=== PATIENT | male | born 1945 | race American Indian/Alaskan Native ===

== ENCOUNTER 2016-10-12 14:01 | Emergency (ER) | payer OTHER ==
--- NOTE | 2016-10-12 13:23 | EDM.PDOC ---
[id number] COMING BY PRIVATE CAR Time Seen by Provider: 10/12/16 14:10 Source of Information: Reports: Patient ([id number]), Old records, Provider (Dr. Castillo), RN, RN notes reviewed History Limitations: Reports: No limitations - History of Present Illness INITIAL COMMENTS - FREE TEXT/NARRATIVE: Sent by POV from [facility] today for evaluation of acute urinary retention with urethritis and penile skin changes. Pt was seen in clinic today for follow up after having penile skin lesions and a UA a few days ago. Dr. Castillo called the ER to inform me that he has consulted the [facility] urologist Dr. Sharif via Dr. Sharif's nurse and has been advised to obtain a CT Abd/Pelvis with contrast using urinary outflow protocol, and to place a kaplan catheter, then call Dr. Sharif to form a disposition plan and f/u or transfer of the pt as needed. Pt has labs and UA at [facility] today, but the clinic did not have kaplan catheters or CT availability. Timing/Duration: Reports: Constant, Getting worse Location: Reports: urethral, suprapubic, other (penis) Quality: Reports: ache, burning, cramping Severity: severe Worsens with: Reports: urinating Context: Denies: recent surgery, recent trauma, lifting, activity/exercise Associated Symptoms: Reports: no other symptoms - Related Data Allergies/ADRs: Allergies Allergy/AdvReac Type Severity Reaction Status Date / Time No Known Allergies Allergy Verified 10/12/16 14:16 Home Meds: Home Meds . [No Known Home Meds] 01/29/16 [History] Past Medical History - Past Health History Medical/Surgical History: Denies Medical/Surgical History - Past Surgical History Other HEENT Surgeries/Procedures: Expanded the throat Social & Family History - Family History Family Medical History: Noncontributory - Tobacco Use Smoking Status *Q: Never Smoker Second Hand Smoke Exposure: No - Caffeine Use Caffeine Use: Reports: Coffee, Soda - Recreational Drug Use Recreational Drug Use: No - Living Situation & Occupation Living situation: Reports: , with spouse Occupation: retired ED ROS GENERAL - Review of Systems Review Of Systems: ROS reveals no pertinent complaints other than HPI. ED EXAM, RENAL/ - Physical Exam Exam: See Below Exam Limited By: No limitations General Appearance: alert, WD/WN, no apparent distress Head: atraumatic, normocephalic Neck: normal inspection Respiratory/Chest: no respiratory distress, lungs clear, normal breath sounds, no accessory muscle use, chest non-tender Cardiovascular: regular rate, rhythm GI/Abdominal: normal bowel sounds, soft, no organomegaly, tender (at suprapubic region with distended urinary bladder to level just inferior to umbilicus). No : guarding, rigid, rebound (Male) Exam: Other (penile varicosity w/mild edema, appears to likely be from persistently distended bladder) Back Exam: normal inspection. No: CVA tenderness (L), CVA tenderness (R) Extremities: normal inspection, no pedal edema Neurological: alert, oriented, normal cognition, normal gait, no motor/sensory deficits Psychiatric: normal affect, normal mood Course - Vital Signs Last Recorded V/S: Last Vital Signs Temp 36.3 C 10/12/16 14:04 Pulse 71 10/12/16 14:04 Resp 20 10/12/16 14:04 BP 175/84 H 10/12/16 14:04 Pulse Ox 98 10/12/16 14:04 - Orders/Labs/Meds Meds: Medications Discontinued Medications Generic Name Dose Route Start Last Admin Trade Name Freq PRN Reason Stop Dose Admin Barium Sulfate 450 ml 10/12/16 13:13 Readi-Cat PO 10/12/16 13:14 ONETIME ONE Barium Sulfate 450 ml 10/12/16 15:39 Readi-Cat 2 PO 10/12/16 15:40 ONETIME ONE Iopamidol 100 ml 10/12/16 13:13 10/12/16 15:38 Isovue-300 (61%) IVPUSH 10/12/16 13:14 100 ml ONETIME ONE Administration Tamsulosin HCl 0.4 mg 10/12/16 17:34 Flomax PO 10/12/16 17:35 ONETIME ONE - Radiology Interpretation Free Text/Narrative:: CT scan abdomen and pelvis: Large postvoid residual volume urinary bladder (no sign of upper tract obstruction). Abnormal prostate gland. Huge hiatal hernia. See rad report for further comments. - Re-Assessments/Exams Free Text/Narrative Re-Assessment/Exam: 10/12/16 17:[address] Sharif, urologist television journalist, at [facility]. He advised discharge the patient to home with Kaplan catheter and Flomax 0.4mg daily. Advised to have the patient follow up in clinic or one of his associates sometime between Sunday or Sunday next week. Patient will follow up tomorrow with Dr. Portillo at [facility]. Patient has been instructed in Kaplan catheter by RN prior to discharge. I explained the exam findings, results of all diagnostic tests, working diagnosis, and any potential or additionally considered diagnoses, treatment/ disposition plan, self/home care instructions, rational for the diagnosis/ treatment plan/disposition plan, anticipated course of illness, and follow up instructions to the pt and/or pts family or guardian. The pt and/or pts family or guardian acknowledges understanding of the above explanation(s), and of the signs and symptoms which should prompt the return of the pt to the ER should those or any other concerning symptoms develop. Departure - Departure Time of Disposition: 17:34 Disposition: Home, Self-Care 01 Condition: fair Clinical Impression: Acute urinary retention Instructions: Kaplan Catheter Care, Adult, Acute Urinary Retention, Male, Easy- to-Read Forms: ED Department Discharge Additional Instructions: Flomax 0.4mg. Follow up in clinic tomorrow with Dr. Portillo for recheck. Follow up in urology clinic at [facility] between October 16 to for recheck. Return to ER if worse at any time or any new symptoms develop.
[~2016-10-12 14:01] MED LIST: Barium Sulfate w/v 1.3% Oral Susp 450 ML Bottle PO ONE; Iopamidol 612 MG/ML 100 ML Bottle IVPUSH ONE
[2016-10-12 14:07] VITALS: BP 175/84
[2016-10-12] MEDS ORDERED: Barium Sulfate w/v 2.1% Oral Susp 450 ML Bottle PO ONE (15:39)
--- NOTE | 2016-10-12 16:15 | CT ---
Clinical history: 71-year-old 185 pound male with clinical "urethritis", penile swelling and severe urinary retention. TECHNIQUE: Volume acquisition of data from the abdomen and pelvis kidneys/ureters/bladder) obtained during/after the intravenous infusion 100 cc nonionic Isovue contrast was patient was lying supine o n the Siemens multi slice CT scanner [place], [place]. All data archi noe in the PACS system for storage, reformatting and study. Interpretation: Abnormal. 1. Midline urinary bladder distended with the dome approaching a plane through the umbilicus (above the iliac crest). Prostate gland enlarged with dense central calcification (irregular margin ). 2. Normal reniform size axis and configuration bilaterally (isolated tiny punctate calyceal calcific ation lower pole right and midpole left kidneys i.e. nephrolithiasis). No sign of obstructive uropathy i.e. no pyelocaliectasis or ureterectasis. No cystic or solid renal cortical mass lesion. 3. No other pelvic or abdominal mass lesion and no signs of retroperitoneal lymphadenopathy. 4. Huge hiatus hernia incarcerated in the lower middle mediastinum. 5. Gallbladder, liver, spleen, pancreas, and adrenal glands unremarkable. Note: Pronounced, large "post void" urinary bladder residual volume. 6. Atheromatous calcifications normal caliber aortoiliac vessels no sign of aneurysm. CONCLUSION: Large postvoid residual volume urinary bladder (no sign of upper tract obstruction). Abn ormal prostate gland. Huge hiatus hernia.
[2016-10-12] MEDS ORDERED: Tamsulosin 0.4 MG Cap.ER PO ONE (17:34)
== END 2016-10-12 18:01 | disposition home or self-care (01) ==
LOC: DL.ED 14:01
DX: R33.9 Retention of urine, unspecified (principal)
CPT/HCPCS: 74178; 99283; Q9967; 51702

== ENCOUNTER 2016-11-17 10:43 | Emergency (ER) | payer OTHER ==
[2016-11-17] MEDS ORDERED: Polyethylene Glycol 3350 Powder 17 GM Packet PO ONE (11:05)
--- NOTE | 2016-11-17 11:11 | EDM.PDOC ---
{null, ED HPI GENERAL MEDICAL PROBLEM - General Chief Complaint: Gastrointestinal Problem Stated Complaint: CONSTIPATION Time Seen by Provider: 11/17/16 11:07 Source of Information: Reports: Patient History Limitations: Reports: No Limitations - History of Present Illness INITIAL COMMENTS - FREE TEXT/NARRATIVE: patient comes to the department today with complaints of constipation. He has not had a bowel movement in the past 2 weeks. Typically has a bowel movement every 2-3 days. He has tried [id number] docusate as well as fleets enemas at home without resolution. His abdomen is distended he has lots of abdominal cramping. He denies any nausea or vomiting. He denies any history of surgery to his abdomen. Up until 6 months ago he did not struggle with constipation and has been seeing his regular doctor for this and has a colonoscopy coming up in the near future. He denies any fever chills. Denies any hematuria dysuria or urinary frequency. Prior to this episode of constipation he denies any black or tarry stools. Abdomen Pain Score (Numeric/FACES): 8 - Related Data Allergies Allergy/AdvReac Type Severity Reaction Status Date / Time No Known Allergies Allergy Verified 10/12/16 14:16 Home Meds: Home Meds Lisinopril 10 mg PO DAILY 11/17/16 [History] Past Medical History - Past Health History Medical/Surgical History: Denies Medical/Surgical History - Past Surgical History Other HEENT Surgeries/Procedures: Expanded the throat Social & Family History - Family History Family Medical History: Noncontributory - Tobacco Use Smoking Status *Q: Never Smoker Used Tobacco, but Quit: No Second Hand Smoke Exposure: No - Caffeine Use Caffeine Use: Reports: Coffee, Soda - Recreational Drug Use Recreational Drug Use: No - Living Situation & Occupation Living situation: Reports: , with Spouse Occupation: Retired ED ROS GENERAL - Review of Systems Review Of Systems: ROS reveals no pertinent complaints other than HPI. ED EXAM, GI/ABD - Physical Exam Exam: See Below Exam Limited By: No Limitations General Appearance: Alert, WD/WN, No Apparent Distress Respiratory/Chest: No Respiratory Distress, Lungs Clear, Normal Breath Sounds Cardiovascular: Normal Peripheral Pulses, Regular Rate, Rhythm, Tachycardia GI/Abdominal: Hypoactive Bowel Sounds, Tenderness (generalized), Distention ( mildly). No: Guarding, Rebound, Rigidity, Hepatomegaly, Mass (Male) Exam: Deferred Rectal (Males) Exam: Deferred (on initial exam.) Back Exam: Normal Inspection. No: CVA Tenderness (L), CVA Tenderness (R) Extremities: Normal Inspection, Normal Range of Motion, Normal Capillary Refill Neurological: Alert, Oriented Psychiatric: Normal Affect Skin Exam: Warm, Dry, Intact, Normal Color, No Rash Lymphatic: No Adenopathy Course - Vital Signs Last Recorded V/S: Last Vital Signs Temp 36.8 C 11/17/16 11:09 Pulse 128 H 11/17/16 11:09 Resp 20 11/17/16 11:09 BP 146/105 H 11/17/16 11:09 Pulse Ox 96 11/17/16 11:09 Vital Signs - 8 hr 11/17/16 11/17/16 11:09 14:11 Temperature [ 36.8 C 37.0 C Temporal] Pulse, 128 H 91 Peripheral [ Right Pulse Oximetry] Respiratory 20 16 Rate Blood Pressure 146/105 H 164/88 H [Left Upper Arm ] O2 Sat by Pulse 96 98 Oximetry - Orders/Labs/Meds Orders: Active Orders 24 hr Category Date Time Status Enema [RC] ASDIRECTED Care 11/17/16 11:44 Active Meds: Medications Discontinued Medications Generic Name Dose Route Start Last Admin Trade Name Freq PRN Reason Stop Dose Admin Polyethylene Glycol 34 gm 11/17/16 11:05 11/17/16 11:34 Miralax PO 11/17/16 11:06 34 gm ONETIME ONE Administration - Radiology Interpretation Free Text/Narrative:: two-view abdomen per radiology. stool documented across the course of the colon and concentrated in the rectum constipation. No mass or signs of mechanical small bowel junction. No free sub-diaphragmatic air. - Re-Assessments/Exams Free Text/Narrative Re-Assessment/Exam: 11/17/16 12:25 I relayed the findings of the constipation the patient from the x-ray. Will give some MiraLax to help soften his stool over the next couple of days and try soapsuds enema and reevaluate as needed. You'll be sent to the floor for the enema. 11/17/16 14:03 patient was on the hospital floor over the past hour or so and received a couple of soapsuds enemas. He had 3 medium sized bowel movements with complete resolution of his pressure abdominal cramping and states that he feels 100% better. Bowel sounds more active than arrival and his abdomen is much softer than it was on arrival. Spoke with him at length about bowel therapy at home and the importance of followup with his colonoscopy as he has had a recent change in his frequency of bowel movements. Discharge instructions as below were explained to the patient he was comfortable with this plan and his questions were answered. Departure - Departure Time of Disposition: 13:57 Disposition: Home, Self-Care 01 Clinical Impression: Obstipation - Discharge Information Instructions: Constipation, Adult, [id number] Forms: ED Department Discharge Additional Instructions: Increase fluid intake over the next few days. Miralax 1 capfull a day till easy smooth bowel movement. Then slowly titrate down to regular easy bowel movement that are comfortable and appropriate for you. Return to the ED if new or worsening symptoms. Recheck primary care provider as previously determined, 1 week if problems, and keep colonoscopy appointment. - My Orders Last 24 Hours: My Active Orders 11/17/16 11:44 Enema [RC] ASDIRECTED - Assessment/Plan Last 24 Hours: My Active Orders 11/17/16 11:44 Enema [RC] ASDIRECTED Assessment:: Obstipation/Constipation Plan: Increase fluid intake over the next few days. Miralax 1 capfull a day till easy smooth bowel movement. Then slowly titrate down to regular easy bowel movement that are comfortable and appropriate for you. Return to the ED if new or worsening symptoms. Recheck primary care provider as previously determined, 1 week if problems, and keep colonoscopy appointment. }
--- NOTE | 2016-11-17 11:39 | CR ---
{null, Clinical history: 71-year-old male abdominal distention (no bowel movement for 2 weeks). Interpretation: Large hiatus hernia incarcerated in the lower middle mediastinum. Stool documented across the course of the colon and concentrated in the rectum (obstipation). 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 No abdominal soft tissue mass or signs of mechanical small bowel obstruction. No free subdiaphragmatic air. Lung bases clear. CONCLUSION: Hiatus hernia. Obstipation. }
[2016-11-17 14:20] VITALS: BP 164/88
== END 2016-11-17 14:13 | disposition home or self-care (01) ==
LOC: DL.ED 10:43
DX: K59.00 Constipation, unspecified (principal); Z79.899 Other long term (current) drug therapy
CPT/HCPCS: 74020; 99283; A9270

== ENCOUNTER 2017-01-17 06:57 | Day surgery (SDC) | payer OTHER ==
[2017-01-17] MEDS ORDERED: Moxifloxacin 0.5% Ophth Soln 3 ML Bottle EYELF ONE (07:00)
[2017-01-17] MEDS ORDERED: Sodium Chloride 0.9% 10 ML Syringe FLUSH PRN (07:00)
[2017-01-17] MEDS ORDERED: Timolol Maleate 0.5% Ophth Soln 5 ML Bottle EYELF ONE (07:00)
[2017-01-17] MEDS ORDERED: Proparacaine 0.5% Ophth Soln 15 ML Bottle EYELF SCH (07:00)
[2017-01-17] MEDS ORDERED: Povidone-Iodine 5% Sterile Ophth Soln 30 ML Bottle EYELF ONE ×2 (07:00→08:14)
[2017-01-17] MEDS ORDERED: Phenylephrine 10% Ophth Soln 5 ML Bot EYELF ONE (07:00)
[2017-01-17] MEDS ORDERED: Dilation Soln 1 EA EACH EYELF ONE (07:00)
[2017-01-17] MEDS ORDERED: Midazolam 1 MG/ML 2 ML SDV ONE (07:33)
[2017-01-17] MEDS ORDERED: Dexamethasone 4 MG/ML SDV ONE (07:33)
[2017-01-17] MEDS ORDERED: Apraclonidine 0.5% Ophth Soln 5 ML Bot EYELF ONE (08:15)
[2017-01-17] MEDS ORDERED: Diclofenac Sodium 0.1% Ophth Soln 5 ML Bottle EYELF ONE (08:16)
[2017-01-17] MEDS ORDERED: Dexamethasone/Neomycin/Polymyxin B Ophth Oint 3.5 GM Tube EYELF ONE (08:16)
[2017-01-17] MEDS ORDERED: Chondroitin Sulfate/Hyaluronate Sodium Ophth Inj 0.75 ML Syringe EYELF ONE (08:17)
[2017-01-17] MEDS ORDERED: Balanced Salt Solution Ophth Irrig 500 ML Bottle IOCULAR ONE (08:17)
[2017-01-17] MEDS ORDERED: Lidocaine 1% 30 ML SDV ONE (08:17)
[2017-01-17] MEDS ORDERED: Vancomycin 500 MG SDV EYELF ONE (08:17)
[2017-01-17] MEDS ORDERED: Dexamethasone 4 MG/ML SDV IOCULAR ONE (08:24)
--- NOTE | 2017-01-17 08:47 | OR ---
DATE: 01/17/2017 PREOPERATIVE DIAGNOSIS: Cataract, left eye. POSTOPERATIVE DIAGNOSIS: Cataract, left eye. PROCEDURE: Extracapsular cataract extraction with intraocular lens implant, left eye. ANESTHESIA: Topical/local MAC. COMPLICATIONS: None. INDICATION: Mr. Jason was seen in the clinic with complaints of blurred vision. His clinical examination revealed visually significant cataract. I explained options, offered cataract surgery, and I explained risks including the potential for vision loss. He is symptomatic with difficulty reading, difficulty seeing fine print and road signs, and requests cataract surgery. We discussed implant options. He requested a monofocal implant. He understands that he may need glasses following surgery. OPERATIVE DESCRIPTION: After informed consent was obtained and the risks, benefits, and alternatives were explained, the patient was brought to the operative suite and topical anesthesia was administered. The patient was then prepped and draped in the sterile fashion and attention was placed on the left eye. A sterile lid speculum was placed into the left eye to allow operative exposure. A full-thickness paracentesis was made in the temporal portion of the operative eye. Preservative-free lidocaine 0.1 mL was injected into the anterior chamber followed by viscoelastic. A full-thickness corneal incision was then made into the anterior chamber. A bent needle cystotome was used to create a small verito in the anterior capsule. The capsulorrhexis forceps was then used to create a 360-degree curvilinear capsulorrhexis. The nucleus was then removed using a phacoemulsification handpiece and the remaining cortical material was then removed with irrigation and aspiration handpiece. Following removal of the cortical material, the capsular bag was then inspected and noted to be free of any holes or tears. Viscoelastic was then injected into the capsular bag and the intraocular lens was inserted into the capsular bag. The viscoelastic material was then removed from both the anterior and posterior chambers and from behind the IOL. The lens and capsular bag were then reinspected. The IOL was well centered and the capsular bag intact. The wound and paracentesis sites were inspected and hydrated with balanced saline solution. Both were found to be self-sealing. The intraocular pressure was assessed digitally and found to be within normal range. A good red reflex was noted at the completion of the procedure. No complications occurred during the operation. At the completion of the procedure, Maxitrol, Voltaren, and Iopidine drops were placed into the operative eye. A sterile eye shield was placed over the operative eye and the patient was transported to the postoperative recovery area having tolerated the procedure well. Postoperative instructions were given along with a postoperative appointment. The patient was advised to call with any questions or concerns. [facility] /[id number]
[2017-01-17 11:16] VITALS: BP 171/79
[2017-01-17] MEDS ORDERED: Midazolam 1 MG/ML 2 ML SDV IV ONE (14:09)
[2017-01-17] MEDS ORDERED: Dexamethasone 4 MG/ML SDV IV ONE (14:09)
== END 2017-01-17 09:15 | disposition home or self-care (01) ==
LOC: DL.SDS 06:57
PROVIDERS: ATTEND Ophthalmology
DX: H26.9 Unspecified cataract (principal); I10 Essential (primary) hypertension; D50.9 Iron deficiency anemia, unspecified; Z98.890 Other specified postprocedural states; Z87.891 Personal history of nicotine dependence
CPT/HCPCS: 66984; A9270; C1780; J1100; J2250; J3370; J7050

== ENCOUNTER 2017-01-24 07:15 | Day surgery (SDC) | payer OTHER ==
[~2017-01-24 07:15] MED LIST changes: -Barium Sulfate w/v 1.3% Oral Susp 450 ML Bottle PO ONE; +Dilation Soln 1 EA EACH EYERT ONE; -Iopamidol 612 MG/ML 100 ML Bottle IVPUSH ONE; +Moxifloxacin 0.5% Ophth Soln 3 ML Bottle EYERT ONE; +Phenylephrine 10% Ophth Soln 5 ML Bot EYERT ONE; +Povidone-Iodine 5% Sterile Ophth Soln 30 ML Bottle EYERT ONE; +Proparacaine 0.5% Ophth Soln 15 ML Bottle EYERT ONE; +Sodium Chloride 0.9% 10 ML Syringe FLUSH PRN; +Timolol Maleate 0.5% Ophth Soln 5 ML Bottle EYERT ONE
[2017-01-24] MEDS ORDERED: Midazolam 1 MG/ML 2 ML SDV ONE (08:41)
[2017-01-24] MEDS ORDERED: Dexamethasone 4 MG/ML SDV ONE (08:41)
[2017-01-24] MEDS ORDERED: Povidone-Iodine 5% Sterile Ophth Soln 30 ML Bottle EYERT ONE (09:01)
[2017-01-24] MEDS ORDERED: Lidocaine 1% 30 ML SDV ONE (09:01)
[2017-01-24] MEDS ORDERED: Diclofenac Sodium 0.1% Ophth Soln 5 ML Bottle EYERT ONE (09:02)
[2017-01-24] MEDS ORDERED: Dexamethasone/Neomycin/Polymyxin B Ophth Oint 3.5 GM Tube EYERT ONE (09:02)
[2017-01-24] MEDS ORDERED: Apraclonidine 0.5% Ophth Soln 5 ML Bot EYERT ONE (09:02)
[2017-01-24] MEDS ORDERED: Tetracaine HCl/PF 0.5% 4 ML Bottle EYERT ONE (09:02)
[2017-01-24] MEDS ORDERED: Balanced Salt Solution Ophth Irrig 500 ML Bottle IOCULAR ONE (09:03)
[2017-01-24] MEDS ORDERED: Chondroitin Sulfate/Hyaluronate Sodium Ophth Inj 0.75 ML Syringe EYERT ONE (09:03)
[2017-01-24] MEDS ORDERED: Vancomycin 500 MG SDV EYERT ONE (09:03)
[2017-01-24 10:06] VITALS: BP 174/74
--- NOTE | 2017-01-24 11:57 | OR ---
DATE: 01/24/2017 PREOPERATIVE DIAGNOSIS: Cataract, right eye. POSTOPERATIVE DIAGNOSIS: Cataract, right eye. PROCEDURE: Extracapsular cataract extraction with intraocular lens implant, right eye. ANESTHESIA: Topical/local MAC. COMPLICATIONS: None. INDICATION: Mr. Jason was seen in the clinic. He has complained of blurred vision, difficulty at both distance and near tasks. Clinical examination revealed mixed cataract. I explained options. I offered cataract surgery and I explained risks including the potential for visual loss. He is symptomatic and requests surgery to improve vision and function. He requested a monofocal implant. OPERATIVE DESCRIPTION: After informed consent was obtained and the risks, benefits, and alternatives were explained, the patient was brought to the operative suite and topical anesthesia was administered. The patient was then prepped and draped in the sterile fashion and attention was placed on the right eye. A sterile lid speculum was placed into the right eye to allow operative exposure. A full-thickness paracentesis was made in the temporal portion of the operative eye. Preservative-free lidocaine 0.1 mL was injected into the anterior chamber followed by viscoelastic. A full-thickness corneal incision was then made into the anterior chamber. A bent needle cystotome was used to create a small verito in the anterior capsule. The capsulorrhexis forceps was then used to create a 360-degree curvilinear capsulorrhexis. The nucleus was then removed using a phacoemulsification handpiece and the remaining cortical material was then removed with irrigation and aspiration handpiece. Following removal of the cortical material, the capsular bag was then inspected and noted to be free of any holes or tears. Viscoelastic was then injected into the capsular bag and the intraocular lens was inserted into the capsular bag. No complications occurred. The viscoelastic material was then removed from both the anterior and posterior chambers and from behind the IOL. The lens and capsular bag were then reinspected. The IOL was well centered and the capsular bag intact. The wound and paracentesis sites were inspected and hydrated with balanced saline solution. Both were found to be self-sealing. The intraocular pressure was assessed digitally and found to be within normal range. A good red reflex was noted at the completion of the procedure. No complications occurred during the operation. At the completion of the procedure, Maxitrol, Voltaren, and Iopidine drops were placed into the operative eye. A sterile eye shield was placed over the operative eye and the patient was transported to the postoperative recovery area having tolerated the procedure well. Postoperative instructions were given along with a postoperative appointment. The patient was advised to call with any questions or concerns. [facility] /[id number]
[2017-01-24] MEDS ORDERED: Midazolam 1 MG/ML 2 ML SDV IV ONE (15:24)
[2017-01-24] MEDS ORDERED: Dexamethasone 4 MG/ML SDV IV ONE (15:24)
== END 2017-01-24 10:09 | disposition home or self-care (01) ==
LOC: DL.SDS 07:15
PROVIDERS: ATTEND Ophthalmology
DX: H26.9 Unspecified cataract (principal); I10 Essential (primary) hypertension; D50.9 Iron deficiency anemia, unspecified; Z98.890 Other specified postprocedural states; Z87.891 Personal history of nicotine dependence; Z79.899 Other long term (current) drug therapy
CPT/HCPCS: 66984; A9270; J1100; J2250; J3370; J7050; V2632

== ENCOUNTER 2017-09-03 08:03 | Emergency (ER) | payer OTHER ==
[2017-09-03 08:15] VITALS: BP 133/84
--- NOTE | 2017-09-03 08:38 | EDM.PDOC ---
ED HPI GENERAL MEDICAL PROBLEM - General Chief Complaint: General Stated Complaint: [id number] CANT KEEP BALANCE FOR 2 DAYS Time Seen by Provider: 09/03/17 08:37 Source of Information: Reports: Patient, Family, RN, RN Notes Reviewed History Limitations: Reports: No Limitations - History of Present Illness INITIAL COMMENTS - FREE TEXT/NARRATIVE: Pt presents to the ER with c/o fever, chills, cough, body aches, and weakness. Pt states he began having body aches on Sunday night, developed the cough and fever on Sunday. States he still feels quite weak. Unable to dress on his own this morning. Patient denies production with cough, SOB, CP, N/V/D. Onset: Sudden Onset Date: 08/31/17 - Related Data Allergies Allergy/AdvReac Type Severity Reaction Status Date / Time No Known Allergies Allergy Verified 09/03/17 08:15 Home Meds: Home Meds Lisinopril 10 mg PO DAILY 11/17/16 [History] Aspirin [Halfprin] 1 tab PO DAILY 01/12/17 [History] Cholecalciferol (Vitamin D3) [Vitamin D3] 1 tab PO DAILY 01/12/17 [History] Dextromethorphan Polistirex [Delsym] 30 mg PO ASDIRECTED PRN 09/03/17 [History] Ibuprofen/Pseudoephedrine HCl [Advil Cold & Sinus Caplet] 1 tab PO ASDIRECTED PRN 09/03/17 [History] Past Medical History - Past Health History Medical/Surgical History: Denies Medical/Surgical History HEENT History: Reports: Cataract, Impaired Vision, Other (See Below) Other HEENT History: DENTURES, wear glasses Cardiovascular History: Reports: High Cholesterol, Hypertension Respiratory History: Reports: None Gastrointestinal History: Reports: Other (See Below) Other Gastrointestinal History: needed enemas before Genitourinary History: Reports: None Musculoskeletal History: Reports: None Neurological History: Reports: None Psychiatric History: Reports: None Endocrine/Metabolic History: Reports: None Hematologic History: Reports: Anemia, Iron Deficiency Immunologic History: Reports: None Oncologic (Cancer) History: Reports: None Dermatologic History: Reports: None - Infectious Disease History Other Infectious Disease History: unknown - Past Surgical History Head Surgeries/Procedures: Reports: None HEENT Surgical History: Reports: Cataract Surgery, Oral Surgery Other HEENT Surgeries/Procedures: Expanded the throat GI Surgical History: Reports: Colonoscopy, EGD, Esophageal Dilatation Male Surgical History: Reports: TURP-Transurethral Resection of Prostate Social & Family History - Family History Family Medical History: Noncontributory - Tobacco Use Smoking Status *Q: Never Smoker Used Tobacco, but Quit: No Second Hand Smoke Exposure: No - Caffeine Use Caffeine Use: Reports: Coffee, Soda - Recreational Drug Use Recreational Drug Use: No - Living Situation & Occupation Living situation: Reports: , with Spouse Occupation: Retired ED ROS GENERAL - Review of Systems Review Of Systems: ROS reveals no pertinent complaints other than HPI. ED EXAM, GENERAL - Physical Exam Exam: See Below Exam Limited By: No Limitations General Appearance: Alert, WD/WN, No Apparent Distress Eye Exam: Bilateral Eye: EOMI, Normal Inspection, PERRL Ears: Normal External Exam, Hearing Grossly Normal Nose: Normal Inspection Throat/Mouth: Normal Inspection, Normal Voice, No Airway Compromise Head: Atraumatic, Normocephalic Neck: Normal Inspection, Supple, Non-Tender, Full Range of Motion Respiratory/Chest: No Respiratory Distress, Normal Breath Sounds, No Accessory Muscle Use, Chest Non-Tender, Crackles (right base) Cardiovascular: Normal Peripheral Pulses, Regular Rate, Rhythm, No Edema, No Gallop, No JVD, No Murmur, No Rub Peripheral Pulses: 2+: Radial (L), Radial (R) GI/Abdominal: Normal Bowel Sounds, Soft, Non-Tender, No Organomegaly, No Distention, No Abnormal Bruit, No Mass (Male) Exam: Deferred Rectal (Males) Exam: Deferred Back Exam: Normal Inspection, Full Range of Motion Extremities: Normal Inspection, Normal Range of Motion, Non-Tender, No Pedal Edema, Normal Capillary Refill Neurological: Alert, Oriented, Normal Cognition, Normal Gait, No Motor/Sensory Deficits Psychiatric: Normal Affect, Normal Mood Skin Exam: Warm, Dry, Intact, Normal Color, No Rash Lymphatic: No Adenopathy EKG INTERPRETATION EKG Date: 09/03/17 Time: 08:38 Rhythm: NSR Rate (Beats/Min): 78 [place]: Normal P-Wave: Present QRS: Normal ST-T: Normal QT: Normal Comparison: NA - No Prior EKG Course - Vital Signs Last Recorded V/S: Last Vital Signs Temp 98.8 F 09/03/17 08:09 Pulse 101 H 09/03/17 08:09 Resp 16 09/03/17 08:09 BP 133/84 09/03/17 08:09 Pulse Ox 96 09/03/17 08:09 - Orders/Labs/Meds Orders: Active Orders 24 hr Category Date Time Status EKG Documentation Completion [RC] STAT Care 09/03/17 08:38 Active Peripheral IV Care [RC] . DIRECTED Care 09/03/17 08:39 Active Chest 2V [CR] Urgent Exams 09/03/17 08:39 Taken CULTURE BLOOD [BC] Stat Lab 09/03/17 08:54 Received CULTURE BLOOD [BC] Stat Lab 09/03/17 09:01 Received UA W/MICROSCOPIC [URIN] Stat Lab 09/03/17 08:39 Ordered Sodium Chloride 0.9% [Saline Flush] Med 09/03/17 08:39 Active 10 ml FLUSH ASDIRECTED PRN Blood Culture x2 Reflex Set [OM.PC] Stat Oth 09/03/17 08:39 Ordered Peripheral IV Insertion Adult [OM.PC] Stat Oth 09/03/17 08:38 Ordered Medication Orders Sodium Chloride (Saline Flush) 10 ml FLUSH ASDIRECTED PRN PRN Reason: Keep Vein Open Last Admin: 09/03/17 09:16 Dose: 10 ml Labs: Laboratory Tests 09/03/17 09/03/17 09/03/17 Range/Units 08:54 08:54 08:54 WBC 5.3 (5.0-10.0) 10^3/uL RBC 5.26 (4.6-6.2) 10^6/uL Hgb 11.7 L (14.0-18.0) g/dL Hct 36.1 L (40.0-54.0) % MCV 68.6 L (80-100) fL MCH 22.2 L (27.0-34.0) pg MCHC 32.4 L (33.0-35.0) g/dL Plt Count 149 L (150-450) 10^3/uL Neut % (Auto) 75.7 H (42.2-75.2) % Lymph % (Auto) 13.2 L (20.5-50.1) % Republic % (Auto) 10.9 H (2-8) % Eos % (Auto) 0.0 L (1.0-3.0) % Baso % (Auto) 0.2 (0.0-1.0) % Sodium 132 L (135-145) mmol/L Potassium 3.5 L (3.6-5.0) mmol/L Chloride 102 (101-111) mmol/L Carbon Dioxide 21.0 (21.0-31.0) mmol/L Anion Gap 12.5 BUN 16 (7-18) mg/dL Creatinine 1.2 (0.6-1.3) mg/dL Est Cr Clr Drug Dosing 57.52 mL/min Estimated GFR (MDRD) 59 BUN/Creatinine Ratio 13.33 Glucose 121 H (74-105) mg/dL Lactic Acid (0.5-2.2) mmol/L Calcium 8.2 L (8.4-10.2) mg/dl Total Bilirubin 0.4 (0.2-1.0) mg/dL AST 29 (10-42) IU/L ALT 13 (10-60) IU/L Alkaline Phosphatase 62 (42-121) IU/L Creatine Kinase 69 (26-174) IU/L Creatine Kinase Index 0.6 (0-2.4) % CK-MB (CK-2) 0.40 (0.4-4.7) ng/mL Troponin I 0.02 (0.00-0.02) ng/ml Total Protein 7.0 (6.7-8.2) g/dl Albumin 3.3 (3.2-5.5) g/dl Globulin 3.7 Albumin/Globulin Ratio 0.89 03/05/18 Range/Units 08:54 WBC (5.0-10.0) 10^3/uL RBC (4.6-6.2) 10^6/uL Hgb (14.0-18.0) g/dL Hct (40.0-54.0) % MCV (80-100) fL MCH (27.0-34.0) pg MCHC (33.0-35.0) g/dL Plt Count (150-450) 10^3/uL Neut % (Auto) (42.2-75.2) % Lymph % (Auto) (20.5-50.1) % Republic % (Auto) (2-8) % Eos % (Auto) (1.0-3.0) % Baso % (Auto) (0.0-1.0) % Sodium (135-145) mmol/L Potassium (3.6-5.0) mmol/L Chloride (101-111) mmol/L Carbon Dioxide (21.0-31.0) mmol/L Anion Gap BUN (7-18) mg/dL Creatinine (0.6-1.3) mg/dL Est Cr Clr Drug Dosing mL/min Estimated GFR (MDRD) BUN/Creatinine Ratio Glucose (74-105) mg/dL Lactic Acid 0.8 (0.5-2.2) mmol/L Calcium (8.4-10.2) mg/dl Total Bilirubin (0.2-1.0) mg/dL AST (10-42) IU/L ALT (10-60) IU/L Alkaline Phosphatase (42-121) IU/L Creatine Kinase (26-174) IU/L Creatine Kinase Index (0-2.4) % CK-MB (CK-2) (0.4-4.7) ng/mL Troponin I (0.00-0.02) ng/ml Total Protein (6.7-8.2) g/dl Albumin (3.2-5.5) g/dl Globulin Albumin/Globulin Ratio Influenza A and B: Negative Meds: Medications Generic Name Dose Route Start Last Admin Trade Name Freq PRN Reason Stop Dose Admin Sodium Chloride 10 ml 09/03/17 08:39 09/03/17 09:16 Saline Flush FLUSH 10 ml ASDIRECTED PRN Administration Keep Vein Open Discontinued Medications Generic Name Dose Route Start Last Admin Trade Name Freq PRN Reason Stop Dose Admin Sodium Chloride 1,000 mls @ 999 mls/hr 09/03/17 08:39 09/03/17 09:15 Normal Saline IV 09/03/17 09:39 999 mls/hr .BOLUS ONE Administration - Radiology Interpretation Free Text/Narrative:: Chest x-ray: See rad report Departure - Departure Time of Disposition: 10:50 Disposition: Home, Self-Care 01 Condition: Fair Clinical Impression: Upper respiratory infection Qualifiers: URI type: unspecified viral URI Qualified Code(s): J06.9 - Acute upper respiratory infection, unspecified - Discharge Information Instructions: Viral Respiratory Infection, [id number] Forms: ED Department Discharge, ED Department Discharge Additional Instructions: Tylenol or Ibuprofen as directed for fever and body aches Drink plenty of fluids Rest, no work until feeling better and no fever for 24 hours Follow up with your primary care facility this week. - My Orders Last 24 Hours: My Active Orders 09/03/17 08:38 EKG Documentation Completion [RC] STAT Peripheral IV Insertion Adult [OM.PC] Stat 09/03/17 08:39 Peripheral IV Care [RC] . DIRECTED Chest 2V [CR] Urgent UA W/MICROSCOPIC [URIN] Stat Sodium Chloride 0.9% [Saline Flush] 10 ml FLUSH ASDIRECTED PRN Blood Culture x2 Reflex Set [OM.PC] Stat 09/03/17 08:54 CULTURE BLOOD [BC] Stat 09/03/17 09:01 CULTURE BLOOD [BC] Stat - Assessment/Plan Last 24 Hours: My Active Orders 09/03/17 08:38 EKG Documentation Completion [RC] STAT Peripheral IV Insertion Adult [OM.PC] Stat 09/03/17 08:39 Peripheral IV Care [RC] . DIRECTED Chest 2V [CR] Urgent UA W/MICROSCOPIC [URIN] Stat Sodium Chloride 0.9% [Saline Flush] 10 ml FLUSH ASDIRECTED PRN Blood Culture x2 Reflex Set [OM.PC] Stat 09/03/17 08:54 CULTURE BLOOD [BC] Stat 09/03/17 09:01 CULTURE BLOOD [BC] Stat
[2017-09-03] MEDS ORDERED: Sodium Chloride 0.9% 1,000 ML IV ONE (08:39)
[2017-09-03] MEDS ORDERED: Sodium Chloride 0.9% 10 ML Syringe FLUSH PRN (08:39)
--- NOTE | 2017-09-03 10:53 | CR ---
Clinical history: 72-year-old male with fever and cough. Interpretation: Abnormal. Asymmetric peripheral pleural-based atelectasis/infiltrate (infarct?) involving the lingular segment laterally left upper lobe. Some bronchial "cuffing" but no appreciable air trapping. Note: Large hiatus hernia incarcerated in the lower middle mediastinum. Normal cardiac silhouette without cephalization of vascular flow, signs of alveolar edema or dependen t pleural effusion. No lung mass or hilar lymphadenopathy. Veronica thorax unremarkable. CONCLUSION: Left upper lobe pneumonia. (See differential diagnosis above)
--- NOTE | 2017-09-04 11:29 | EKG ---
09/03/2017 - SB HANCOCK - TIME: 8:38 a.m. The interpretation of this EKG is by me. The EKG shows a sinus rhythm of 8 beats per minute. Evidence of left ventricular hypertrophy by criteria. Normal axis. Normal QRS complex. No ST segment or T-wave changes. [facility] /[id number]
== END 2017-09-03 10:59 | disposition home or self-care (01) ==
LOC: DL.ED 08:03
DX: J06.9 Acute upper respiratory infection, unspecified (principal); E78.00 Pure hypercholesterolemia, unspecified; I10 Essential (primary) hypertension; Z79.82 Long term (current) use of aspirin; Z79.899 Other long term (current) drug therapy
CPT/HCPCS: 36415; 71046; 80053; 82550; 82553; 83605; 84484; 85025; 87040; 87804; 93005; 96360; 99285; J7030; J7050

== ENCOUNTER 2018-08-20 22:30 | Emergency (ER) | payer BC, OTHER ==
[2018-08-20 22:39] VITALS: BP 165/91
--- NOTE | 2018-08-20 22:58 | EDM.PDOC ---
ED HPI GENERAL MEDICAL PROBLEM - General Chief Complaint: Gastrointestinal Problem Stated Complaint: CONSTIPATED Time Seen by Provider: 08/20/18 22:45 Source of Information: Reports: Patient History Limitations: Reports: No Limitations - History of Present Illness INITIAL COMMENTS - FREE TEXT/NARRATIVE: no BM x 3 days, lower abdominal cramping . No relief with fleets at home. Hx of constipation in past, More episodes since using ensure and boost supplement. Hx of similar in past. No fever or chills. No nausea or vomiting. Lower Abdomen Pain Score (Numeric/FACES): 8 - Related Data Allergies Allergy/AdvReac Type Severity Reaction Status Date / Time No Known Allergies Allergy Verified 08/20/18 22:41 Home Meds: Home Meds Lisinopril 10 mg PO DAILY 11/17/16 [History] Aspirin [Halfprin] 1 tab PO DAILY 01/12/17 [History] Ibuprofen/Pseudoephedrine HCl [Advil Cold & Sinus Caplet] 1 tab PO ASDIRECTED PRN 09/03/17 [History] Past Medical History - Past Health History Medical/Surgical History: Denies Medical/Surgical History HEENT History: Reports: Cataract, Impaired Vision, Other (See Below) Other HEENT History: DENTURES, wear glasses Cardiovascular History: Reports: High Cholesterol, Hypertension Respiratory History: Reports: None Gastrointestinal History: Reports: Other (See Below) Other Gastrointestinal History: needed enemas before Genitourinary History: Reports: None Musculoskeletal History: Reports: None Neurological History: Reports: None Psychiatric History: Reports: None Endocrine/Metabolic History: Reports: None Hematologic History: Reports: Anemia, Iron Deficiency Immunologic History: Reports: None Oncologic (Cancer) History: Reports: None Dermatologic History: Reports: None - Infectious Disease History Infectious Disease History: Reports: Mumps Other Infectious Disease History: unknown - Past Surgical History Head Surgeries/Procedures: Reports: None HEENT Surgical History: Reports: Cataract Surgery, Oral Surgery Other HEENT Surgeries/Procedures: Expanded the throat GI Surgical History: Reports: Colonoscopy, EGD, Esophageal Dilatation Male Surgical History: Reports: TURP-Transurethral Resection of Prostate Social & Family History - Family History Family Medical History: Noncontributory - Tobacco Use Smoking Status *Q: Never Smoker - Caffeine Use Caffeine Use: Reports: None - Recreational Drug Use Recreational Drug Use: No - Living Situation & Occupation Living situation: Reports: , with Spouse Occupation: Retired ED ROS GENERAL - Review of Systems Review Of Systems: ROS reveals no pertinent complaints other than HPI. ED EXAM, GI/ABD - Physical Exam Exam: See Below Exam Limited By: No Limitations General Appearance: Alert, No Apparent Distress Ears: Normal External Exam Nose: Normal Inspection, Normal Mucosa Throat/Mouth: Normal Inspection, Normal Lips Head: Atraumatic, Normocephalic Neck: Normal Inspection Respiratory/Chest: No Respiratory Distress, Lungs Clear, Normal Breath Sounds Cardiovascular: Normal Peripheral Pulses, Regular Rate, Rhythm GI/Abdominal Exam: Soft, Tender (mild deep palpation), Abnormal Bowel Sounds ( hyperactive). No: Distended, Guarding, Rigid, Rebound Back Exam: Full Range of Motion Extremities: Normal Inspection, Normal Range of Motion Neurological: Alert, Oriented, Normal Cognition Psychiatric: Normal Affect, Normal Mood Skin Exam: Warm, Dry, Intact, Normal Color Course - Vital Signs Last Recorded V/S: Last Vital Signs Temp 97.3 F 08/20/18 22:35 Pulse 78 08/20/18 22:35 Resp 18 08/20/18 22:35 BP 165/91 H 08/20/18 22:38 Pulse Ox 100 08/20/18 22:35 - Orders/Labs/Meds Orders: Active Orders 24 hr Category Date Time Status Enema [RC] ASDIRECTED Care 08/20/18 23:12 Active Abdomen 1V Upright [CR] Urgent Exams 08/20/18 22:51 Taken Meds: Medications Discontinued Medications Generic Name Dose Route Start Last Admin Trade Name Lulú PRN Reason Stop Dose Admin Magnesium Citrate Confirm 08/20/18 23:14 Citrate Of Magnesia Administered 08/20/18 23:15 Dose 296 ml .ROUTE .STK-MED ONE - Radiology Interpretation Free Text/Narrative:: Name: SB HANCOCK Age: 73Years M Date: 08/20/2018 SSN: -- : 1945 Study: XR ABDOMEN 1 VIEW Requesting Physician: STEPHANIE REYES Images: 1 Addl Studies: Provided Clinical History: Contrast: Contrast Medium: Contrast Amount: Contrast Method: CONFIDENTIALITY STATEMENT This report is intended only for use by the referring physician, and only in accordance with law. If you received this in error, call [phone]. Page 1 of 1 EXAM: XR Abdomen, 1 View EXAM DATE/TIME: 08/20/2018 11:01 PM CLINICAL HISTORY: 73 years old, male; Pain; Abdominal pain; Acute; Patient HX: Cramping, constipation TECHNIQUE: Frontal supine view of the abdomen/pelvis. COMPARISON: CR Abdomen 2V AP Flat Upright 11/17/2016 11:12 AM FINDINGS: Gastrointestinal tract: Moderate stool is present within the colon. 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 Bones/joints: Degenerative disc disease of the lumbar spine. IMPRESSION: There is no acute abdominal findings. Thank you for allowing us to participate in the care of your patient. Dictated and Authenticated by: Jose Caro MD 08/20/2018 11:35 PM Central Time ([place] & [place] - Re-Assessments/Exams Free Text/Narrative Re-Assessment/Exam: 08/21/18 03:17 Sx resolved at discharge. Good results with Enema x 2 Departure - Departure Time of Disposition: 00:45 Disposition: Home, Self-Care 01 Condition: Good Clinical Impression: Constipation - Discharge Information *PRESCRIPTION DRUG MONITORING PROGRAM REVIEWED*: Not Applicable *COPY OF PRESCRIPTION DRUG MONITORING REPORT IN PATIENT SUSAN: Not Applicable Instructions: Constipation, Adult Forms: ED Department Discharge Additional Instructions: increase fruit and fiber in diet miralax one capful daily mag citrate one bottle tonight follow up as needed - My Orders Last 24 Hours: My Active Orders 08/20/18 22:51 Abdomen 1V Upright [CR] Urgent 08/20/18 23:12 Enema [RC] ASDIRECTED - Assessment/Plan Last 24 Hours: My Active Orders 08/20/18 22:51 Abdomen 1V Upright [CR] Urgent 08/20/18 23:12 Enema [RC] ASDIRECTED
[2018-08-20] MEDS ORDERED: Magnesium Citrate Solution 296 ML Bottle ONE (23:14)
== END 2018-08-21 01:10 | disposition home or self-care (01) ==
LOC: DL.ED 22:30
DX: K59.00 Constipation, unspecified (principal); Z79.899 Other long term (current) drug therapy; Z79.82 Long term (current) use of aspirin
CPT/HCPCS: 74018; 99283

== ENCOUNTER 2019-12-27 21:22 | Emergency (ER) | payer BC, OTHER ==
--- NOTE | 2019-12-27 23:09 | CR ---
PROCEDURE INFORMATION: Exam: XR Abdomen, 2 Views Exam date and time: 12/27/2019 10:56 PM Age: 74 years old Clinical indication: Other: Low abd pain; Additional info: ? Constipation TECHNIQUE: Imaging protocol: XR of the abdomen. Views: 2 Views. COMPARISON: No relevant prior studies available. FINDINGS: Gastrointestinal tract: There is a Chilaiditi configuration of the hepatic flexure of the colon. Moderate stool is present within the colon. Intraperitoneal space: Normal. No free air. Bones/joints: Unremarkable for age. IMPRESSION: 1. Moderate stool is present within the colon. 2. 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
--- NOTE | 2019-12-27 23:29 | EDM.PDOC ---
ED HPI GENERAL MEDICAL PROBLEM - General Chief Complaint: Gastrointestinal Problem Stated Complaint: CONSTIPATED PER PT Time Seen by Provider: 12/27/19 23:00 Source of Information: Reports: Patient, RN, RN Notes Reviewed History Limitations: Reports: No Limitations - History of Present Illness INITIAL COMMENTS - FREE TEXT/NARRATIVE: Patient presents to ER with complaint of constipation. He states the last bowel movement he had was 3 days ago. States he has troubles with this frequently. States he has been using Dulcolax, and has used 3 fleets enemas which he was able to retain, but unable to pass any stool. Patient admits to mild abdominal pain, denies nausea or vomiting. Onset: Gradual Lower Abdominal Pain Score (Numeric/FACES): 9 - Related Data Allergies Allergy/AdvReac Type Severity Reaction Status Date / Time No Known Allergies Allergy Verified 12/27/19 22:08 Home Meds: Home Meds Aspirin [Halfprin] 1 tab PO DAILY 01/12/17 [History] Ibuprofen/Pseudoephedrine HCl [Advil Cold & Sinus Caplet] 1 tab PO ASDIRECTED PRN 09/03/17 [History] Losartan Potassium 100 mg PO DAILY 12/27/19 [History] amLODIPine Besylate [Amlodipine Besylate] 5 mg PO DAILY 12/27/19 [History] cloNIDine HCL [Clonidine HCl] 0.1 mg PO DAILY 12/27/19 [History] Past Medical History - Past Health History Medical/Surgical History: Denies Medical/Surgical History HEENT History: Reports: Cataract, Impaired Vision, Other (See Below) Other HEENT History: DENTURES, wear glasses Cardiovascular History: Reports: High Cholesterol, Hypertension Respiratory History: Reports: None Gastrointestinal History: Reports: Chronic Constipation Other Gastrointestinal History: needed enemas before Genitourinary History: Reports: None Musculoskeletal History: Reports: None Neurological History: Reports: None Psychiatric History: Reports: None Endocrine/Metabolic History: Reports: None Hematologic History: Reports: Anemia, Iron Deficiency Immunologic History: Reports: None Oncologic (Cancer) History: Reports: None Dermatologic History: Reports: None - Infectious Disease History Infectious Disease History: Reports: Mumps Other Infectious Disease History: unknown - Past Surgical History Head Surgeries/Procedures: Reports: None HEENT Surgical History: Reports: Cataract Surgery, Oral Surgery Other HEENT Surgeries/Procedures: Expanded the throat GI Surgical History: Reports: Colonoscopy, EGD, Esophageal Dilatation Male Surgical History: Reports: TURP-Transurethral Resection of Prostate Social & Family History - Family History Family Medical History: Noncontributory - Tobacco Use Smoking Status *Q: Unknown Ever Smoked - Caffeine Use Caffeine Use: Reports: Coffee, Soda - Living Situation & Occupation Living situation: Reports: , with Spouse Occupation: Retired ED ROS GENERAL - Review of Systems Review Of Systems: Comprehensive ROS is negative, except as noted in HPI. ED EXAM, GI/ABD - Physical Exam Exam: See Below Exam Limited By: No Limitations General Appearance: Alert, WD/WN, No Apparent Distress Eyes: Bilateral: Normal Appearance, EOMI Ears: Normal External Exam, Hearing Grossly Normal Nose: Normal Inspection Throat/Mouth: Normal Inspection, Normal Voice, No Airway Compromise Head: Atraumatic, Normocephalic Neck: Normal Inspection, Supple, Non-Tender, Full Range of Motion Respiratory/Chest: No Respiratory Distress, Lungs Clear, Normal Breath Sounds, No Accessory Muscle Use, Chest Non-Tender Cardiovascular: Normal Peripheral Pulses, Regular Rate, Rhythm, No Edema, No Gallop, No JVD, No Murmur, No Rub GI/Abdominal Exam: Normal Bowel Sounds, Tender, Other (firm) (Male) Exam: Deferred Rectal (Males) Exam: Deferred Back Exam: Normal Inspection, Full Range of Motion, NT Extremities: Normal Inspection, Normal Range of Motion, Non-Tender, Normal Capillary Refill, No Pedal Edema Neurological: Alert, Oriented, CN II-XII Intact, Normal Cognition, Normal Gait, Normal Reflexes, No Motor/Sensory Deficits Psychiatric: Normal Affect, Normal Mood Skin Exam: Warm, Dry, Intact, Normal Color, No Rash Lymphatic: No Adenopathy Course - Vital Signs Last Recorded V/S: Last Vital Signs Temp 97.6 F 12/27/19 23:46 Pulse 86 12/27/19 23:46 Resp 20 12/27/19 23:46 BP 152/86 H 12/27/19 23:46 Pulse Ox 99 12/27/19 23:46 - Orders/Labs/Meds Orders: Active Orders 24 hr Category Date Time Status Enema [RC] ASDIRECTED Care 12/27/19 23:32 Active Ready for Discharge [RC] PER UNIT ROUTINE Care 12/28/19 00:54 Active - Radiology Interpretation Free Text/Narrative:: Abdominal flat and upright xray: PROCEDURE INFORMATION: Exam: XR Abdomen, 2 Views Exam date and time: 12/27/2019 10:56 PM Age: 74 years old Clinical indication: Other: Low abd pain; Additional info: ? Constipation TECHNIQUE: Imaging protocol: XR of the abdomen. Views: 2 Views. COMPARISON: No relevant prior studies available. FINDINGS: Gastrointestinal tract: There is a Chilaiditi configuration of the hepatic flexure of the colon. Moderate stool is present within the colon. Intraperitoneal space: Normal. No free air. Bones/joints: Unremarkable for age. IMPRESSION: 1. Moderate stool is present within the colon. 2. 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 Thank you for allowing us to participate in the care of your patient. Dictated and Authenticated by: Jose Caro MD 12/27/2019 11:09 PM Central Time ([place] & [place]) See rad report - Re-Assessments/Exams Free Text/Narrative Re-Assessment/Exam: 12/28/19 01:51 Patient sent to the medical floor for soapsuds enema. Patient did have large results, states he is feeling better and ready to be discharged. Departure - Departure Time of Disposition: 00:41 Disposition: Home, Self-Care 01 Condition: Good Clinical Impression: Chilaiditi's syndrome Constipation Qualifiers: Constipation type: slow transit constipation Qualified Code(s): K59.01 - Slow transit constipation - Discharge Information *PRESCRIPTION DRUG MONITORING PROGRAM REVIEWED*: No *COPY OF PRESCRIPTION DRUG MONITORING REPORT IN PATIENT SUSAN: No Instructions: Constipation, Adult, [id number] Referrals: PCP,None [Ordering Only Provider] - Forms: ED Department Discharge Additional Instructions: Drink plenty of water Follow up with your primary care facility Sepsis Event Note (ED) - Evaluation Sepsis Screening Result: No Definite Risk - Focused Exam Vital Signs: Vital Signs Temp Pulse Resp BP Pulse Ox 12/27/19 23:46 97.6 F 86 20 152/86 H 99 12/27/19 22:06 98.5 F 104 H 18 162/89 H 97 - My Orders Last 24 Hours: My Active Orders 12/27/19 23:32 Enema [RC] ASDIRECTED 12/28/19 00:54 Ready for Discharge [RC] PER UNIT ROUTINE - Assessment/Plan Last 24 Hours: My Active Orders 12/27/19 23:32 Enema [RC] ASDIRECTED 12/28/19 00:54 Ready for Discharge [RC] PER UNIT ROUTINE
[2019-12-28 00:30] VITALS: BP 152/86; PULSE 86
== END 2019-12-28 00:50 | disposition home or self-care (01) ==
LOC: DL.ED 21:22
DX: K59.01 Slow transit constipation (principal); Q43.3 Congenital malformations of intestinal fixation; I10 Essential (primary) hypertension; Z79.899 Other long term (current) drug therapy; Z79.82 Long term (current) use of aspirin
CPT/HCPCS: 74019; 99283-25

== ENCOUNTER 2024-07-13 15:03 | Emergency (ER) | payer BC, OTHER ==
[2024-07-13] MEDS ORDERED: Sodium Chloride 0.9% 10 ML Syringe FLUSH PRN (15:19)
[2024-07-13 15:28] LABS: BASOPHILS PERCENT AUTO 0.3 % (0.0-1.0); EOSINOPHILS PERCENT AUTO 2.2 % (1.0-3.0); HEMATOCRIT 43.1 % (40.0-54.0); HEMOGLOBIN 14.4 g/dL (14.0-18.0); LYMPHOCYTES PERCENT AUTO 27.1 % (20.5-50.1); MEAN CORPUSCULAR HEMOGLOBIN 30.4 pg (27.0-34.0); MEAN CORPUSCULAR HGB CONC 33.4 g/dL (33.0-35.0); MEAN CORPUSCULAR VOLUME 90.9 fL (80-100); MONOCYTES PERCENT AUTO 6.7 % (2-8); NEUTROPHILS PERCENT AUTO 63.7 % (42.2-75.2); PLATELET COUNT,PLT 150 10^3/uL (150-450); RED BLOOD CELL COUNT 4.74 10^6/uL (4.6-6.2)
[2024-07-13 15:46] VITALS: BP 175/60; PULSE 32
[2024-07-13 15:56] LABS: A/G RATIO 0.9; ALANINE AMINOTRANSFERASE,ALT 32 U/L (16-63); ALBUMIN 3.4 g/dL (3.4-5.0); ALKALINE PHOSPHATASE 101 U/L (46-116); ANION GAP 9.2 mEq/L (7-13); ASPARTATE AMNIOTRANSFERASE,AST 29 U/L (15-37); BILIRUBIN TOTAL 0.6 mg/dL (0.2-1.0); BLOOD UREA NITROGEN,BUN 25 mg/dL (7-18); BUN/CREATININE RATIO 17.4 (No establ ref range); C-REACTIVE PROTEIN 0.69 ng/dL (<=0.50); CALCIUM 9.2 mg/dL (8.5-10.1); CARBON DIOXIDE,CO2 30 mmol/L (21-32); CHLORIDE,CL 106 mmol/L (98-107); CREATININE 1.44 mg/dL (0.70-1.30); GLUCOSE RANDOM 133 mg/dL (70-99); MAGNESIUM 2.2 mg/dL (1.8-2.4); POTASSIUM,K 4.2 mmol/L (3.5-5.1); PROTEIN TOTAL,TP 7.4 g/dL (6.4-8.2); SODIUM,NA 141 mmol/L (136-145)
[2024-07-13 15:57] LABS: ESTIMATED GFR 49 mL/min (>=60)
[2024-07-13 16:03] LABS: INR 1.1 (0.9-1.2); PROTHROMBIN TIME 11.6 SEC (9.0-12.0); PTT,PARTIAL THROMBOPLSTIN TIME 26.3 SEC (22.0-34.0)
== END 2024-07-13 16:55 ==
LOC: DL.ED 15:03
DX: I44.2 Atrioventricular block, complete (principal); I10 Essential (primary) hypertension; Z79.899 Other long term (current) drug therapy; Z79.82 Long term (current) use of aspirin
CPT/HCPCS: 36415; 71045; 80053; 83605; 83735; 84145; 84484; 85025; 85610; 85730; 86140; 93005; 93010; 99284; 99285

== ENCOUNTER 2024-08-10 01:41 | Emergency (ER) | payer BC, OTHER ==
[2024-08-10] MEDS: Sodium Chloride 0.9% 1,000 ML IV ONE ×3 (01:57→06:08)
[2024-08-10] MEDS: Ketorolac 30 MG/ML SDV IVPUSH ONE (01:58)
[2024-08-10] MEDS: Acetaminophen 500 MG Tab PO ONE (01:58)
[2024-08-10 02:01] LABS: BASOPHILS PERCENT AUTO 0.2 % (0.0-1.0); EOSINOPHILS PERCENT AUTO 0.2 % (1.0-3.0); HEMATOCRIT 38.4 % (40.0-54.0); HEMOGLOBIN 12.6 g/dL (14.0-18.0); LYMPHOCYTES PERCENT AUTO 3.9 % (20.5-50.1); MEAN CORPUSCULAR HGB CONC 32.8 g/dL (33.0-35.0); MEAN CORPUSCULAR VOLUME 91.4 fL (80-100); MONOCYTES PERCENT AUTO 6.6 % (2-8); NEUTROPHILS PERCENT AUTO 89.1 % (42.2-75.2); PLATELET COUNT,PLT 149 10^3/uL (150-450); WHITE BLOOD CELL COUNT,WBC 11.9 10^3/uL (5.0-10.0)
[2024-08-10 02:16] LABS: A/G RATIO 0.9; ALANINE AMINOTRANSFERASE,ALT 23 U/L (16-63); ALBUMIN 3.4 g/dL (3.4-5.0); ALKALINE PHOSPHATASE 105 U/L (46-116); ANION GAP 12.9 mEq/L (7-13); ASPARTATE AMNIOTRANSFERASE,AST 27 U/L (15-37); BILIRUBIN TOTAL 0.8 mg/dL (0.2-1.0); BLOOD UREA NITROGEN,BUN 22 mg/dL (7-18); BUN/CREATININE RATIO 21.2 (No establ ref range); CARBON DIOXIDE,CO2 27 mmol/L (21-32); CHLORIDE,CL 105 mmol/L (98-107); CREATININE 1.04 mg/dL (0.70-1.30); GLUCOSE RANDOM 165 mg/dL (70-99); MAGNESIUM 1.7 mg/dL (1.8-2.4); POTASSIUM,K 3.9 mmol/L (3.5-5.1); SODIUM,NA 141 mmol/L (136-145)
[2024-08-10 02:19] LABS: LACTIC ACID 1.1 mmol/L (0.4-2.0)
[2024-08-10 02:23] LABS: CALCIUM 8.5 mg/dL (8.5-10.1); ESTIMATED GFR 72 mL/min (>=60)
[2024-08-10] MEDS: Magnesium Sulf/Wat 2 GM/50 mL 2 GM in Premix Bag 1 BAG IV ONE (02:49)
[2024-08-10 04:01] LABS: APPEARANCE,URINE SLIGHTLY CLOUDY (CLEAR); BILIRUBIN,URINE NEGATIVE (NEGATIVE); COLOR,URINE DARK YELLOW (YELLOW); GLUCOSE,URINE NEGATIVE (NEGATIVE); KETONES,URINE TRACE (NEGATIVE); LEUKOCYTE ESTERASE,URINE NEGATIVE (NEGATIVE); NITRITE,URINE NEGATIVE (NEGATIVE); OCCULT BLOOD,URINE NEGATIVE (NEGATIVE); PROTEIN,URINE TRACE (NEGATIVE)
[2024-08-10 04:02] LABS: AMORPHOUS SEDIMENT,URINE FEW /HPF (NOT SEEN); BACTERIA,URINE FEW /HPF (0-FEW/HPF); EPITHELIAL CELLS,URINE FEW /HPF (NOT SEEN); MUCUS,URINE MODERATE /LPF (NOT SEEN); RBC,URINE 0-5 /HPF (0-5); WBC,URINE 0-5 /HPF (0-5/HPF)
[2024-08-10] MEDS: Piperacillin/Tazobactam 4.5 GM in Sodium Chloride 0.9% 100 ML IV ONE (04:15)
[2024-08-10] MEDS: VANCOmycin 1.25 GM in Sodium Chloride 0.9% 250 ML IV ONE ×2 (04:53→16:33)
[2024-08-10] MEDS: Piperacillin/Tazobactam 3.375 GM in Sodium Chloride 0.9% 100 ML IV ONE (12:39)
[2024-08-10] MEDS: Polyethylene Glycol 3350 Powder 17 GM Packet PO ONE (12:39)
[2024-08-10 14:27] LABS: BASOPHILS PERCENT AUTO 0.1 % (0.0-1.0); EOSINOPHILS PERCENT AUTO 0.4 % (1.0-3.0); HEMOGLOBIN 10.8 g/dL (14.0-18.0); MEAN CORPUSCULAR HEMOGLOBIN 30.3 pg (27.0-34.0); MEAN CORPUSCULAR HGB CONC 32.7 g/dL (33.0-35.0); MEAN CORPUSCULAR VOLUME 92.7 fL (80-100); MONOCYTES PERCENT AUTO 7.3 % (2-8); NEUTROPHILS PERCENT AUTO 82.2 % (42.2-75.2); PLATELET COUNT,PLT 115 10^3/uL (150-450); RED BLOOD CELL COUNT 3.56 10^6/uL (4.6-6.2); WHITE BLOOD CELL COUNT,WBC 7.4 10^3/uL (5.0-10.0)
[2024-08-10 14:42] LABS: ANION GAP 9.9 mEq/L (7-13); BLOOD UREA NITROGEN,BUN 24 mg/dL (7-18); CALCIUM 8.2 mg/dL (8.5-10.1); CARBON DIOXIDE,CO2 28 mmol/L (21-32); CHLORIDE,CL 108 mmol/L (98-107); CREATININE 1.09 mg/dL (0.70-1.30); GLUCOSE RANDOM 131 mg/dL (70-99); POTASSIUM,K 3.9 mmol/L (3.5-5.1); SODIUM,NA 142 mmol/L (136-145)
[2024-08-10 14:43] LABS: ESTIMATED GFR 68 mL/min (>=60)
[2024-08-10 15:08] LABS: CORONAVIRUS COVID-19 NAA NEGATIVE (NEGATIVE); INFLUENZA A NAA NEGATIVE (NEGATIVE); INFLUENZA B NAA NEGATIVE (NEGATIVE)
[2024-08-10] MEDS ORDERED: Piperacillin/Tazobactam 3.375 GM in Sodium Chloride 0.9% 100 ML IV SCH (20:45)
[2024-08-10] MEDS: Piperacillin/Tazobactam 4.5 GM in Sodium Chloride 0.9% 100 ML IV SCH (21:20)
[2024-08-11] MEDS: Sodium Chloride 0.9% 10 ML Syringe FLUSH PRN (05:28)
[2024-08-11 06:40] LABS: BASOPHILS PERCENT AUTO 0.4 % (0.0-1.0); EOSINOPHILS PERCENT AUTO 2.2 % (1.0-3.0); HEMATOCRIT 33.5 % (40.0-54.0); HEMOGLOBIN 11.1 g/dL (14.0-18.0); MEAN CORPUSCULAR HEMOGLOBIN 30.6 pg (27.0-34.0); MEAN CORPUSCULAR HGB CONC 33.1 g/dL (33.0-35.0); MEAN CORPUSCULAR VOLUME 92.3 fL (80-100); MONOCYTES PERCENT AUTO 8.1 % (2-8); NEUTROPHILS PERCENT AUTO 70.3 % (42.2-75.2); PLATELET COUNT,PLT 128 10^3/uL (150-450); RED BLOOD CELL COUNT 3.63 10^6/uL (4.6-6.2); WHITE BLOOD CELL COUNT,WBC 5.5 10^3/uL (5.0-10.0)
[2024-08-11 06:58] LABS: ANION GAP 5.8 mEq/L (7-13); C-REACTIVE PROTEIN 3.53 ng/dL (<=0.50); CREATININE 0.99 mg/dL (0.70-1.30); EST CRCL DRUG DOSING (CG) 52.56 mL/min; POTASSIUM,K 3.8 mmol/L (3.5-5.1)
[2024-08-11 10:42] VITALS: BP 138/59; PULSE 63
[2024-08-11] MEDS ORDERED: Carbidopa/Levodopa 25-100 MG Tab PO SCH (14:00)
[2024-08-11] MEDS ORDERED: VANCOmycin 1.25 GM in Sodium Chloride 0.9% 250 ML IV SCH (16:00)
== END 2024-08-11 13:02 ==
LOC: DL.ED 01:41
DX: R50.9 Fever, unspecified (principal); I10 Essential (primary) hypertension; E78.00 Pure hypercholesterolemia, unspecified; I25.10 Atherosclerotic heart disease of native coronary artery without angina pectoris; Z79.82 Long term (current) use of aspirin; Z79.899 Other long term (current) drug therapy; Z95.0 Presence of cardiac pacemaker
CPT/HCPCS: 0240U; 36415; 71045; 80048; 80053; 80202; 81001; 83605; 83735; 84145; 84484; 85025; 86140; 87040; 87428-QW; 93005; 93010; 96361; 96365; 96366; 96367; 96375; 99284; 99285-25; A9270-GY; J1885; J2543; J3371; J3475; J3490; J7030